=== PATIENT | female | born 1995 | race Two or more races ===

== ENCOUNTER 2017-05-27 01:19 | Emergency (ER) | payer OTHER ==
[~2017-05-27] VITALS: Ht 152.4 cm; Wt 61.2 kg
[2017-05-27 01:45] VITALS: BP 110/53
--- NOTE | 2017-05-27 01:55 | Emergency Room Report ---
History of Present Illness General Chief Complaint: Back Pain-No Injury Source: Patient Present Illness HPI Patient presents with left flank pain. She's had this type of problem before. She states that it in the past and a kidney infection or urinary tract infection. Pain started yesterday afternoon. She's not been taking a lot of fluids. Also has body aches. She is on her period now. She denies having kidney stones in the past. There has been no vomiting or diarrhea. She's not been coughing. Pain rated at 10/10, constant, not radiating, pressure and aching. Feverish without chills, no documented fever. Period last week. 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 No change in bowels, depression, rashes. Allergies: Coded Allergies: AMOXICILLIN (Verified Allergy, Unknown, 05/27/17) Patient History Past Medical History: see triage record Social History: Reports: smoking, drug use Social History Narrative brought by boyfriend Last Menstrual Period: Last week Now: No - Possible Reviewed Nursing Documentation: PMH: Agreed, PSxH: Agreed Nursing Documentation-PMH Past Medical History: No Stated History Review of Systems All Other Systems: negative except mentioned in HPI Physical Exam Vital Signs Date Time Temp Pulse Resp B/P (MAP) Pulse Ox O2 Delivery O2 Flow Rate FiO2 05/27/17 01:28 99.1 87 16 103/65 100 Room Air Sp02 EP Interpretation: reviewed, normal General Appearance: well appearing, GCS 15, mild distress Head: normocephalic Eyes: bilateral eye PERRL, bilateral eye Scleral Injection, bilateral eye other - tears ENT: moist mucus membranes Neck: supple Respiratory: lungs clear, normal breath sounds Cardiovascular #1: regular rate, rhythm Cardiovascular #2: 2+ radial (R) Gastrointestinal: normal inspection, normal bowel sounds, non tender, no mass, non-distended Genitourinary: CVA tenderness (L) Musculoskeletal: back normal, gait/station normal, normal range of motion Neurologic: alert, oriented x3, grossly normal Psychiatric: other - tearful Skin: normal inspection, warm/dry Medical Decision Making Diagnostic Impression: Primary Impression: Pyelonephritis ER Course Patient presents with left flank pain and body aches. Differential includes renal stone, pyelonephritis, UTI, muscle strain amongst others. Evaluation will be with labs. Patient received IV hydration and analgesia. Leukocytosis, pyuria. Rocephin given. Patient states she is safe at home without abuse. Improved with treatment. Patient stable for outpatient observation and treatment. Laboratory Tests Test 05/27/17 01:40 05/27/17 01:50 Urine Color Yellow Urine Appearance Cloudy Urine pH 7 (4.5-8.0) Urine Specific [place] 1.015 (1.005-1.035) Urine Protein 1+ (NEGATIVE) H Urine Glucose (UA) Negative (NEGATIVE) Urine Ketones Negative (NEGATIVE) Urine Occult Blood 5+ (NEGATIVE) H Urine Nitrite Positive (NEGATIVE) H Urine Bilirubin Negative (NEGATIVE) Urine Urobilinogen 4 MG/DL (0.0-1.0) H Urine Leukocyte Esterase 3+ (NEGATIVE) H Urine RBC 5-10 /HPF (0 - 2) H Urine WBC 20-30 /HPF (0 - 2) H Urine Squamous Epithelial Cells Occasional /LPF Urine Bacteria Many /HPF (NONE) H Urine HCG, Qualitative Negative White Blood Count 14.7 K/UL (4.8-10.8) H Red Blood Count 4.99 M/UL (4.20-5.40) Hemoglobin 14.3 G/DL (12.0-16.0) Hematocrit 43.3 % (37.0-47.0) Mean Corpuscular Volume 87 FL (80-99) Mean Corpuscular Hemoglobin 28.7 PG (27.0-31.0) Mean Corpuscular Hemoglobin Concent 33.1 G/DL (32.0-36.0) Red Cell Distribution Width 14.6 % (11.6-14.8) Platelet Count 430 K/UL (150-450) Mean Platelet Volume 6.3 FL (6.5-10.1) L Neutrophils (%) (Auto) 77.0 % (45.0-75.0) H Lymphocytes (%) (Auto) 15.9 % (20.0-45.0) L Monocytes (%) (Auto) 6.0 % (1.0-10.0) Eosinophils (%) (Auto) 0.6 % (0.0-3.0) Basophils (%) (Auto) 0.6 % (0.0-2.0) Prothrombin Time 11.8 SEC (9.30-11.50) H Prothrombin Time INR 1.1 (0.9-1.1) PTT 30 SEC (23-33) Sodium Level 138 MMOL/L (136-145) Potassium Level 3.2 MMOL/L (3.5-5.1) L Chloride Level 102 MMOL/L (98-107) Carbon Dioxide Level 25 MMOL/L (21-32) Anion Gap 11 mmol/L (5-15) Blood Urea Nitrogen 7 mg/dL (7-18) Creatinine 1.1 MG/DL (0.55-1.30) Estimate Glomerular Filtration Rate > 60 mL/min (>60) Glucose Level 74 MG/DL (74-106) Calcium Level 9.5 MG/DL (8.5-10.1) Total Bilirubin 0.8 MG/DL (0.2-1.0) Aspartate Amino Transferase (AST) 54 U/L (15-37) H Alanine Aminotransferase (ALT) 89 U/L (12-78) H Alkaline Phosphatase 122 U/L (46-116) H Total Creatine Kinase 254 U/L (26-308) Total Protein 7.8 G/DL (6.4-8.2) Albumin 3.9 G/DL (3.4-5.0) Globulin 3.9 g/dL Albumin/Globulin Ratio 1.0 (1.0-2.7) Lipase 149 U/L (73-393) Last Vital Signs Date Time Temp Pulse Resp B/P (MAP) Pulse Ox O2 Delivery O2 Flow Rate FiO2 05/27/17 03:31 68 12 109/50 98 05/27/17 01:45 99.1 Room Air Status: improved Disposition: HOME, SELF-CARE Condition: Improved Scripts Acetaminophen (Tylenol) 325 Mg Tablet 650 MG ORAL Q6H Y for Prn Pain/Headache/Temp > 101, #20 TAB 0 Refills Prov: Jasbir Mendoza M.D. 05/27/17 Ibuprofen* (MOTRIN*) 600 Mg Tablet 600 MG ORAL Q6H Y for For Pain, #20 TAB Prov: Jasbir Mendoza M.D. 05/27/17 Cephalexin* (KEFLEX*) 500 Mg Capsule 500 MG ORAL Q6H, #40 CAP 0 Refills Prov: Jasbir Mendoza M.D. 05/27/17 Jasbir Mendoza M.D. May 27, 2017 01:55
[2017-05-27] MEDS ORDERED: Ketorolac 30mg Inj IV ONE (02:00)
[2017-05-27] MEDS ORDERED: Morphine Sulfate 2mg/ml Inj IVP ONE (02:00)
[2017-05-27] MEDS ORDERED: DiphenhydrAMINE 50mg/ml Inj IVP ONE (02:00)
[2017-05-27 02:04] LABS: BASOPHILS % (AUTO) 0.6 % (0.0-2.0); EOSINOPHILS % (AUTO) 0.6 % (0.0-3.0); HEMATOCRIT 43.3 % (37.0-47.0); HEMOGLOBIN 14.3 G/DL (12.0-16.0); LYMPHOCYTES % (AUTO) 15.9 % (20.0-45.0); MEAN CORPUSCULAR VOLUME 87 FL (80-99); PLATELET COUNT 430 K/UL (150-450); RED BLOOD COUNT 4.99 M/UL (4.20-5.40); RED CELL DISTRIBUTION WIDTH 14.6 % (11.6-14.8); WHITE BLOOD COUNT 14.7 K/UL (4.8-10.8)
[2017-05-27 02:17] LABS: ANION GAP 11 mmol/L (5-15); BLOOD UREA NITROGEN 7 mg/dL (7-18); CALCIUM 9.5 MG/DL (8.5-10.1); CARBON DIOXIDE 25 MMOL/L (21-32); CHLORIDE 102 MMOL/L (98-107); CREATININE 1.1 MG/DL (0.55-1.30); POTASSIUM 3.2 MMOL/L (3.5-5.1); SODIUM 138 MMOL/L (136-145)
[2017-05-27 02:19] LABS: APPEARANCE,URINE CLOUDY; BILIRUBIN, URINE NEGATIVE (NEGATIVE); GLUCOSE, URINE (UA) NEGATIVE (NEGATIVE); KETONES,URINE NEGATIVE (NEGATIVE); LEUKOCYTE ESTERASE ,URINE 3+ (NEGATIVE); NITRITE,URINE POSITIVE (NEGATIVE); PH,URINE 7 (4.5-8.0); PROTEIN,URINE 1+ (NEGATIVE); UROBILINOGEN,URINE 4 MG/DL (0.0-1.0)
[2017-05-27 02:21] LABS: ALANINE AMINOTRANSFERASE 89 U/L (12-78); ALBUMIN 3.9 G/DL (3.4-5.0); ALKALINE PHOSPHATASE 122 U/L (46-116); ASPARTATE AMINO TRANSFERASE 54 U/L (15-37); BILIRUBIN,TOTAL 0.8 MG/DL (0.2-1.0)
[2017-05-27 02:23] LABS: CREATINE KINASE 254 U/L (26-308)
[2017-05-27 02:40] LABS: COLOR,URINE YELLOW
[2017-05-27] MEDS ORDERED: cefTRIAXone 1 GM in NS 55 ML IVPB ONE (02:45)
[2017-05-27 02:49] LABS: INR 1.1 (0.9-1.1)
[2017-05-27] MEDS ORDERED: TYLENOL325 MG ORAL (03:18)
[2017-05-27] MEDS ORDERED: KEFLEX500 MG ORAL (03:18)
[2017-05-27] MEDS ORDERED: IBUPROFEN600 MG ORAL (03:18)
[2017-05-27 03:31] VITALS: BP 109/50
== END 2017-05-27 03:35 | disposition home or self-care (01) ==
LOC: EMR 01:59
DX: N12 Tubulo-interstitial nephritis, not specified as acute or chronic (principal); Z88.0 Allergy status to penicillin
CPT/HCPCS: 36415; 80053; 81003; 81025; 82550; 83690; 85025; 85610; 85730; 87086; 87181; 96361; 96374; 96375; 99284; J0696; J0780; J1200; J1885; J2270